=== PATIENT | male | born 1975 | race Two or more races ===

== ENCOUNTER 2016-05-27 01:46 | Emergency (ER) | payer SELFPAY ==
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
== END 2016-05-27 04:40 | disposition home or self-care (01) ==
LOC: CFTX 01:46
DX: S13.4XXA Sprain of ligaments of cervical spine, initial encounter (principal); R07.89 Other chest pain; Z87.442 Personal history of urinary calculi; V49.00XA Driver injured in collision with unspecified motor vehicles in nontraffic accident, initial encounter
CPT/HCPCS: 71010; 72040; 99284